=== PATIENT | female | born 1995 | race Caucasian/White ===

== ENCOUNTER → 2017-11-07 | Outpatient (CLI) | payer BC | LOC: CIMAGING 13:15 | PROVIDERS: ATTEND Physician Assistant | DX: M25.512 Pain in left shoulder (principal) | CPT/HCPCS: 73200-PO ==

== ENCOUNTER 2019-01-06 20:45 | Emergency (ER) | payer BC, MEDICAID ==
--- NOTE | 2019-01-06 20:47 | EDPHY ---
H & P Time Seen by Provider: 01/06/19 20:47 HPI/ROS: HPI CHIEF COMPLAINT: Pelvic pain, intermittent vaginal bleeding, "I may have a problem with my IUD" HISTORY OF PRESENT ILLNESS: 23-year-old female, otherwise healthy does have a history of fibromyalgia, presents to the emergency room with pelvic pain, intermittent vaginal bleeding, and concerned that her IUD may be causing her problem. She reports to me since September she has had some vaginal discomfort. Also reports that she had her IUD initially placed in 2016 and is not really had any issues with it. However this has caused intermittent menses. Sometime she states she has heavy flow, light flow, and no flow at all. She reports over the past week she has had intermittent heavy flow. She denies any abdominal pain. She does have intercourse with multiple partners she last had intercourse a week and half ago she reports this was protected In September she reports unprotected intercourse. She denies a history of STI. Does not recall any STI exposure. She does state that she went to urgent care [facility] for vaginal discomfort and they referred her to the emergency room for further evaluation and ultrasound. She does not think she is . She denies fever. Denies urinary symptoms Denies back pain Past Medical History: Denies significant medical history except for fibromyalgia Past Surgical History: Denies significant surgical history Social History: Denies drugs alcohol tobacco. Family History: Noncontributory ROS REVIEW OF SYSTEMS: 10 Systems were reviewed and negative with the exception of the elements mentioned in the history of present illness. Exam Constitutional appears well, nontoxic, slightly anxious, triage nursing summary reviewed, vital signs reviewed, awake/alert. Eyes normal conjunctivae and sclera, EOMI, PERRLA. HENT normal inspection, atraumatic, moist mucus membranes, no epistaxis, neck supple/ no meningismus, no raccoon eyes. Respiratory clear to auscultation bilaterally, normal breath sounds, no respiratory distress, no wheezing. Cardiovascular rate normal, regular rhythm, no murmur, no edema, distal pulses normal. Gastrointestinal soft, non-tender, no rebound, no guarding, normal bowel sounds, no distension, no pulsatile mass. Genitourinary no CVA tenderness. Musculoskeletal no midline vertebral tenderness, full range of motion, no calf swelling, no tenderness of extremities, no meningismus, good pulses, neurovascularly intact. Skin pink, warm, & dry, no rash, skin atraumatic. Neurologic awake, alert and oriented x 3, AAOx3, moves all 4 extremities equally, motor intact, sensory intact, CN II-XII intact, normal cerebellar, normal vision, normal speech. Psychiatric normal mood/affect. Heme/Lymph/Immune no lymphadenopathy. Differential Diagnosis: Includes but is not limited to in a particular order PID, vaginitis, IUD miss placement, ectopic , UTI Medical Decision Making: Plan for this patient will perform pelvic exam, will test for vaginal infection, as well as STIs, will also evaluate for IUD placement, will perform ultrasound to evaluate uterus and ovaries. 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 No external lesions visualized. Os is closed with IUD strings in appropriate position. No evidence of foul smell or significant vaginal discharge. No external or internal lesions appreciated. No CMT on exam. No adnexal fullness or masses appreciated. No significant tenderness. Swab specimens were taken. Pelvic ultrasound ordered and pending Urinalysis ordered and test ordered. Patient's urinalysis reviewed and negative. Small amount of blood. No infection. test negative Ultrasound of the pelvis. Called to me by Dr. Leos. Negative for acute abnormality IUD in good position. Good blood flow bilaterally to ovaries. No free fluid. Essentially unremarkable pelvic ultrasound. 2312: Updated patient on all for results including her ultrasound, urinalysis, negative test. CBC point care is been reviewed H&H are appropriate. She is not severely anemic. Her wet prep and gonorrhea chlamydia are pending. I did offer to treat her empirically for gonorrhea chlamydia however she has declined this she wants to wait for test results. Return precautions discussed with the patient she understands return emergency if develops worsening abdominal pain, pelvic pain, fever, vomiting On abdominal exam she is nontender no right lower quadrant pain no adnexal tenderness no pelvic pain on exam. Patient is comfortable this plan comfortable being discharged home. Labs reviewed CBC stable. Chemistry unremarkable Urinalysis negative test negative Ultrasound reviewed Wet prep and gonorrhea chlamydia pending Return precautions discussed return emergency room if worsening symptoms questions concerns she is comfortable this plan. Source: Patient Constitutional: Initial Vital Signs Temperature (C) 36.6 C 01/06/19 20:53 Heart Rate 92 01/06/19 20:53 Respiratory Rate 20 01/06/19 20:53 Blood Pressure 123/76 H 01/06/19 20:53 O2 Sat (%) 94 01/06/19 20:53 O2 Delivery Mode Room Air Allergies/Adverse Reactions: No Known Allergies Allergy (Unverified 01/06/19 20:53) Home Medications: Medication Instructions Recorded NK [No Known Home Meds] 01/06/19 Medical Decision Making - Diagnostics Imaging Results: Imaging Impressions Pelvic/Renal Ultrasound 01/06/19 20:48 Impression: Negative ultrasound examination of the pelvis. Results called to Dr. Beka Valenzuela at 10:15 PM. - Data Points Laboratory Results: 01/06/19 01/06/19 01/06/19 23:06 21:06 21:06 POC Sodium 140 mEq/L mEq/L (135-145) POC Potassium 3.4 mEq/L mEq/L (3.3-5.0) POC Chloride 109.0 mEq/L mEq/L (97-110) POC Total CO2 19 mEq/L L mEq/L (22-31) POC BUN 11 mg/dL mg/dL (7-23) POC Creatinine 0.8 mg/dL mg/dL (0.6-1.0) POC Glucose 89 mg/dL mg/dL (70-100) POC Calcium 9.0 mg/dL mg/dL (8.5-10.4) POC Total Bilirubin 0.4 mg/dL mg/dL (0.1-1.4) POC AST 21 IU/L IU/L (14-46) POC ALT 22 IU/L IU/L (9-52) POC Alk Phosphatase 104 IU/L IU/L (38-126) POC Total Protein 6.6 g/dL g/dL (6.3-8.2) POC Albumin 3.4 g/dL L g/dL (3.5-5.0) Kim species DNA Pending C.trachomatis RNA (TMA) Pending Gardnerella DNA Probe Pending N.gonorrhoeae RNA (TMA) Pending Trichomonas DNA Probe Pending Point of Care Test Results: CBC CBC Collection Date 01/06/19 CBC Collection Time 23:03 WBC 11.08 RBC 5.20 HGB 13.3 HCT 41.2 PLT 433 Neut # 5.68 Neut 51.3 LYMPH # 4.44 LYMPH 40.1 MCV 79.2 Chemistry 01/06/19 23:06 POC Sodium 140 mEq/L mEq/L (135-145) POC Potassium 3.4 mEq/L mEq/L (3.3-5.0) POC Chloride 109.0 mEq/L mEq/L (97-110) POC Total CO2 19 mEq/L L mEq/L (22-31) POC BUN 11 mg/dL mg/dL (7-23) POC Creatinine 0.8 mg/dL mg/dL (0.6-1.0) POC Glucose 89 mg/dL mg/dL (70-100) POC Calcium 9.0 mg/dL mg/dL (8.5-10.4) POC Total Bilirubin 0.4 mg/dL mg/dL (0.1-1.4) POC AST 21 IU/L IU/L (14-46) POC ALT 22 IU/L IU/L (9-52) POC Alk Phosphatase 104 IU/L IU/L (38-126) POC Total Protein 6.6 g/dL g/dL (6.3-8.2) POC Albumin 3.4 g/dL L g/dL (3.5-5.0) Urine Collection Date 01/06/19 Collection Time 21:24 HCG Results Negative Urine Dip Collection Date 01/06/19 Collection Time 21:24 Specific [place] (1.002-1.030) 1.020 PH (5.0-7.5) 5.5 Leukocytes (Negative) Negative Nitrites (Negative) Negative Protein (Negative) Negative Glucose (Negative) Negative Ketones (Negative) Negative Urobilnogen (0.2-1.0 EU) 0.2 Bilirubin (Negative) Negative Blood (Negative) 1+ Departure - Departure Disposition: Home, Routine, Self-Care Clinical Impression: Vaginal discomfort, Pelvic pain in female Condition: Good Instructions: Pelvic Pain in Women (ED), Pelvic Pain (ED) Additional Instructions: 1. Return to the emergency room if you develop worsening symptoms. 2. Follow up with [facility]. Referrals: NONE *PRIMARY CARE P,. [Primary Care Provider] - As per Instructions
[2019-01-06 23:31] VITALS: BP 124/66
== END 2019-01-06 23:28 | disposition home or self-care (01) ==
LOC: CED 20:45
DX: N89.8 Other specified noninflammatory disorders of vagina (principal); R10.2 Pelvic and perineal pain; Z97.5 Presence of (intrauterine) contraceptive device
CPT/HCPCS: 76856-PO; 80053-ER; 99284-ER

== ENCOUNTER 2019-04-27 10:16 | Emergency (ER) | payer MEDICAID | END 2019-04-27 11:14 | disposition home or self-care (01) ==